=== PATIENT | female | born 1995 | race Caucasian/White ===

== ENCOUNTER 2017-08-15 18:00 | Emergency (ER) | payer MEDICAID ==
[2017-08-15] MEDS ORDERED: Hydrocodone/APAP 5mg/325mg Tab PO ONE (19:14)
[2017-08-15 19:32] LABS: % BASOPHILS 0.3 % (0.0-2.0); % EOSINOPHILS 0.8 % (0.0-5.0); % LYMPHOCYTES 13.7 % (20.0-50.0); % MONOCYTES 5.9 % (2.0-10.0); % NEUTROPHILS 79.3 % (40.0-80.0); EOSINOPHILE ABSOLUTE 0.1 Th/cmm (0.1-0.4); HEMATOCRIT 32.7 % (41.0-60); HEMOGLOBIN 10.9 gm/dL (12-16); LYMPHOCYTE ABSOLUTE 1.4 Th/cmm (1.5-3.0); MEAN CELL VOLUME 89.7 fl (81-100); MEAN CORPUSCULAR HGB CONC 33.5 pg (28.0-36.0); MEAN PLATELET VOLUME 8.4 fl; MONOCYTE ABSOLUTE 0.6 Th/cmm (0.3-1.0); NEUTROPHILE ABSOLUTE 7.8 Th/cmm (1.8-8.0); PLATELET COUNT 126 Th/cmm (150-400); RED BLOOD COUNT 3.64 Mil/cmm (3.80-5.10); RED CELL DISTRIBUTION WIDTH 12.7 % (11.5-20.0); WHITE BLOOD COUNT 9.9 Th/cmm (4.8-10.8)
[2017-08-15] MEDS ORDERED: Hydrocodone/APAP 5mg/325mg Tab ONE (19:42)
[2017-08-15 19:48] LABS: ALB/GLOB RATIO 1.4 (1.0-1.8); ALBUMIN 3.6 gm/dL (3.7-5.3); ALKALINE PHOSPHATASE 189 U/L (34-104); ANION GAP 11.3 (7.0-16.0); BILIRUBIN,TOTAL 0.8 mg/dL (0.3-1.0); BUN - UREA NITROGEN 8 mg/dL (7-25); CALCIUM SERUM 8.9 mg/dL (8.6-10.3); CARBON DIOXIDE 25.2 mEq/L (21.0-31.0); CHLORIDE 104 mEq/L (98-107); CREATININE - SERUM 0.6 mg/dL (0.6-1.2); GFR AFRICAN-AMERICAN > 60.0 ml/min (>90); GFR NON AFRICAN-AMERICAN > 60.0 ml/min; GLUCOSE 86 mg/dL (70-105); POTASSIUM SERUM 3.5 mEq/L (3.5-5.1); SGOT 29 U/L (13-39); SGPT/ALT 21 U/L (7-52); SODIUM SERUM 137 mEq/L (136-145); TOTAL PROTEIN,SERUM 6.2 gm/dL (6.0-8.3)
[2017-08-15] MEDS ORDERED: Sodium Chloride 0.9% 1,000 ML IV SCH (20:00)
[2017-08-15 20:20] LABS: URINE MICROSCOPIC INDICATED? YES; URINE SOURCE MIDSTREAM
[2017-08-15] MEDS ORDERED: Hydrocodone/APAP 10 mg/325 mg Tab PO STA (20:23)
[2017-08-15 20:24] LABS: ALB/GLOB RATIO 1.5 (1.0-1.8); ALBUMIN 3.5 gm/dL (3.7-5.3); BILIRUBIN,DIRECT 0.34 mg/dL (0.0-0.2); BILIRUBIN,TOTAL 0.7 mg/dL (0.3-1.0); TOTAL PROTEIN,SERUM 5.8 gm/dL (6.0-8.3)
[2017-08-15] MEDS ORDERED: Morphine Sulfate 4 mg/mL 1mL Syr IV STA (20:24)
[2017-08-15] MEDS ORDERED: Dexamethasone Sodium Phos 4 mg/mL Vial IVP STA (20:24)
[2017-08-15] MEDS ORDERED: metroNIDAZOLE 500mg/NS 100mL 500 MG/100 ML BAG IV ONE (20:27)
[2017-08-15] MEDS ORDERED: Levofloxacin 500mg/100mL 500 MG/100 ML BAG IV ONE (20:29)
[2017-08-15] MEDS ORDERED: Sodium Chloride 0.9% 500 ML IV ONE (20:29)
[2017-08-15 20:32] LABS: URINE BILIRUBIN NEGATIVE (NEGATIVE); URINE BLOOD NEGATIVE (NEGATIVE); URINE GLUCOSE (UA) NEGATIVE (NEGATIVE); URINE KETONE NEGATIVE (NEGATIVE); URINE LEUKOCYTE ESTERASE TRACE (NEGATIVE); URINE NITRATE NEGATIVE (NEGATIVE); URINE PROTEIN TRACE mg/dL (NEGATIVE); URINE UROBILINOGEN 0.2 E.U./dL (0.2 - 1.0)
[2017-08-15] MEDS ORDERED: Piperacillin Sodium/Tazobact 3.375 gm Vial IV ONE (20:50)
[2017-08-15] MEDS ORDERED: Hydrocodone/APAP 10 mg/325 mg Tab ONE (20:51)
[2017-08-15 21:09] LABS: URINE CLARITY CLEAR (CLEAR); URINE COLOR YELLOW
[2017-08-15 21:11] LABS: URINE BACTERIA NONE SEEN /hpf (NONE SEEN); URINE EPITHELIAL CELLS NONE SEEN /lpf (FEW); URINE RBC NONE SEEN /hpf (0-5)
[2017-08-15] MEDS ORDERED: Morphine Sulfate 2 mg/mL 1mL Syr IV STA ×2 (22:35→23:45)
[2017-08-15] MEDS ORDERED: Morphine Sulfate 2 mg/mL 1mL Syr ONE ×2 (22:43→23:45)
--- NOTE | 2017-08-15 23:06 | ER Physician Documentation ---
DATE OF SERVICE: A 22-year-old female patient. She is a full code. Body surface area is 1.9 square meters. ALLERGIES: No known allergies reported. I spoke to the triage nurse and reviewed her records. I spoke to the patient and examined the patient and below is the report. The patient is living with her parents here in [place], and they are in the process of moving to [place] and the is not here. Her will be coming. She was diagnosed to have gallstones somewhere around 2 months ago. She saw her physician roughly about 8 to 10 days ago and the patient was advised to take half a tablet of [place] to be taken as and when needed and she just took it maybe about a couple of hours ago, but she is having severe pain, so she came over here with this pain and the pain is there for 1 hour and 4 minutes. She was triaged at 1755 and I am seeing the patient at 1758. The patient is on bed #2. HISTORY OF PRESENT ILLNESS: The patient's pain is in the epigastric area, right upper quadrant area, she is writhing in pain, and the pain is a 10/10. There may be a slight nauseous feeling, but nothing of any significance. Pain scale is a 10/10 in the right upper quadrant as well as epigastric pain. The pain goes through from the epigastric area down in the back also and she had this pain on and off and they said they would do the surgery after the patient's child is born, and she is 7 months . The patient does not have any fevers, chills, rigors, etc. REVIEW OF SYSTEMS: CONSTITUTIONAL: The patient has pain. There is no fever, no chills, no rigors. ENT: No history of ear deafness or ear discharge. No history of any difficulty in swallowing. Eyes messina, no history of double vision, blurring, blindness. CENTRAL NERVOUS SYSTEM: No history of TIA, stroke, encephalitis, meningitis. PULMONARY MESSINA: No history of any pneumonia, TB, pulmonary embolism. ENDOCRINE MESSINA: No history of diabetes mellitus or hypertension. HEART MESSINA: No history of any heart disease. SECURITY OPERATIONS SPECIALIST: none known. GENITOURINARY: She does not have any burning, frequency, dysuria. She does not have any vaginal discharge or any burning in the urine or any bleeding from the rectum or vomiting blood or any other condition. I was told by the triage nurse, Blayne, that patient can be transferred to our sister hospital, [place], after we get some blood workup done. I have ordered some lab workup. We will order some amylase and lipase done to see whether there is any evidence of any pancreatitis going on because the way she described is that the patient has a tube that goes from the gallbladder and there, there was a stone and she does not know exactly the measurement of the stone, how many millimeters in size of the stone that was there. Usually, should it give rise to obstruction or obstructive pain, it should be close to 6-8 mm and with spasm can give rise to this pain. Other than this, all the review of systems is essentially benign and negative. MEDICAL CONDITIONS: None that she can say that except that she is 7 months and she is diagnosed to have gallstones. Previous surgery includes that the patient had appendicitis before. Current medication that she takes is only hydrocodone. IMMUNIZATIONS: Tetanus, it is written VTA, I am not sure whether the patient got a tetanus injection, but may have been given the injection. SOCIAL HISTORY: She does not drink. She does not smoke. She does not use any drugs. She lives with her parents. FAMILY HISTORY: Benign and negative. PHYSICAL EXAMINATION: VITAL SIGNS: Triage nurse's vital signs are temperature of 97.8, pulse of 83, respirations of 24, blood pressure of 114/61, oxygen saturation is 100%, height of 5 feet 2 inches, weight is 130 pounds. Last menstrual period was 7 months ago. No history of any flu. No other history of any other thing. The patient appears to be slightly pale. Conjunctivae also appears to be somewhat pallor. Iris appears to be normal. Pupils appear to be central about 3 mm in size and reacting to light, and the patient has no edema. Peripheral pulses are normal. Pulses in the upper extremities are normal. Vital signs are normal and the patient has been connected to the social human services assistants, oxygen saturations, etc. Rightfully done in the right manner. The patient's general exam is otherwise benign and negative except one can see that she is . On examination of her abdomen, one can find . The baby sounds appears to be present. She has pain and tenderness in the epigastric area. In the right upper quadrant area, she has a Black sign that is positive. Whether she has acute pancreatitis or because the gallstone might have passed now. It is possible it can pass any time from the bile duct into the intestine and can give gallbladder-induced pancreatitis also. So, if the stone is passed, we will be barby that she might not need anything more to be done. CHEST: Clear. Trachea is central. Fairly good air entry in both lungs without any rales, rhonchi, or bronchial breathing. HEART: Reveals the PMI is in the fifth intercostal space midclavicular line. S1, S2 are normal. Fourth heart sound is absent. Third heart sound is absent. No congenital murmur that I can hear, like a continuous murmur or aortic stenosis murmur or any other congenital heart disease murmur or findings, I did not find that. CENTRAL NERVOUS SYSTEM: Grossly normal. She moves all the extremities and she has no evidence of any paralysis. GENITOURINARY: Costovertebral angle appears to be normal. There is no tenderness, no guarding, no rigidity. IMAGING STUDIES: The surgical technician very fast did the EKG on this patient which showed that the patient has atrial fibrillation with a ventricular response of around 106 beats per minute. This is an average response. The right bundle branch block pattern is seen. Minor nonspecific ST-T changes are noted. The Q-waves are seen of about 7 mm in lead 3 only, but 1 millimeter R-wave is noted in aVF, so there is no definite evidence of myocardial infarction in this patient. There is no definite evidence of MA. CLINICAL IMPRESSION: 1. The patient has pain in the epigastric area. Black sign positive. It looks like she has acute cholecystitis plus on top of that she may be having biliary colic. It is possible that there is a stone in the bile duct, she said she had only one stone and that stone might have passed into the bile duct and if that has passed it is a blessing to us and we will see the results what the irrigation service technician shows us. 2. The other diagnosis is that the patient has a of 7 months' duration. 3. Gallstone diagnosis has been made. Gallstone pain and stone in the biliary duct according to her the way she is describing is that the stone might be in the biliary duct, but we will know it after the ultrasound is done. Vital signs are normal. The patient is given a hydrocodone tablet to relieve the pain and the patient's other diagnoses include a right bundle branch block and atrial fibrillation with a ventricular response of 106 beats per minute. We will give the patient some IV fluids at the present moment and wait for the other results, etc., to come. 4. For this atrial fibrillation. I do not think anything at the present needs to be done. Once her pain goes away, this rhythm might change into a normal rhythm. If needed, she might need some Cardizem. If her rate is normal, we will just wait for it to pass on its own. JOB# [id number]
--- NOTE | 2017-08-16 08:36 | Diagnostic Imaging Report ---
Exam: Limited right upper quadrant ultrasound. HISTORY: Acute cholecystitis Findings: Real-time ultrasound examination of the right upper quadrant was performed planes. The study demonstrates distended gallbladder measuring 9.1 x 3.2 cm diameter with the gallbladder wall thickness 3 mm. There is no evidence of pericholecystic fluid collection. Small calculi noted consistent with cholelithiasis. The common bile duct measures 1.1 cm diameter appears to be dilated. IMPRESSION: Cholelithiasis, clinical correlation, HIDA scan might be helpful. Dilatation common bile duct up to 1.1 cm. Clinical correlation recommended.
== END 2017-08-16 00:25 | disposition short-term general hospital (02) ==
LOC: ER 18:00
DX: O26.893 Other specified pregnancy related conditions, third trimester (principal); R10.13 Epigastric pain; I48.91 Unspecified atrial fibrillation
CPT/HCPCS: 99285; 96365; 96375; 93005; 76705; 36415; 83605; 85025; 81001; 82150; 81025; 83735; 80053; 80076; J2270 ×2; J2543; J7030